=== PATIENT | male | born 1965 | race Caucasian/White ===

== ENCOUNTER 2019-07-18 07:21 | Emergency (ER) | payer OTHER ==
[~2019-07-18] VITALS: Ht 188 cm; Wt 89.8 kg
[2019-07-18] MEDS ORDERED: MELOXICAM15 MG PO (07:41)
[2019-07-18] MEDS ORDERED: KETO10TA2 PO (12:10)
[2019-07-18] MEDS ORDERED: NORFLEX100MG PO (12:10)
== END 2019-07-18 12:44 | disposition home or self-care (01) ==
LOC: ER 07:21
DX: M25.512 Pain in left shoulder (principal); M54.2 Cervicalgia